=== PATIENT | male | born 1985 | race Caucasian/White ===

== ENCOUNTER → 2018-06-21 | Outpatient (CLI) | payer OTHER ==
--- NOTE | 2018-06-21 11:33 | REP ---
MAXILLOFACIAL CT WITHOUT CONTRAST: HISTORY: Septal deviation. Minimal mucosal thickening is present in the left sphenoid sinus. The remaining sinuses are clear. The osteomeatal units are patent. The middle and inferior nasal turbinates are partially paradoxical. There is mild deviation of the nasal septum to the right. A spur is present arising from the right side of the nasal septum. This spur abuts the right inferior nasal turbinate. The cribriform plate, medial matthews of the orbits, and optic canals are intact. There is aeration of the right anterior clinoid process. The carotid canals form a segment of the posterolateral matthews of the sphenoid sinus. The sphenoid sinus septa insert into the internal carotid canal matthews. IMPRESSION: Sinus mucosal thickening as described above. Electronically Signed by Horacio Bains MD 06/21/2018 11:36 A
== END ==
LOC: M RAD 10:28
PROVIDERS: ATTEND Otolaryngology
DX: J34.89 Other specified disorders of nose and nasal sinuses (principal)